=== PATIENT | male | born 1945 | race Caucasian/White ===

== ENCOUNTER 2021-11-19 13:35 | Inpatient (IN) | payer MEDICARE ==
[~2021-11-19] VITALS: Ht 177.8 cm; Wt 87.8 kg
[2021-11-19 14:05] LABS: Basophils # (auto) 0.1 10 ^3/uL (0-0.2); Basophils % (auto) 1.2 % (0.0-2.0); Eosinophils # (auto) 0.1 10 ^3/uL (0-0.8); Eosinophils % (auto) 1.5 % (0.0-7.0); Hematocrit 44.4 % (41.0-53.0); Hemoglobin 14.4 g/dL (13.5-17.5); Lymphocytes # (auto) 1.1 10 ^3/uL (0.4-5.4); Lymphocytes % (auto) 17.5 % (10.0-50.0); Mean Corpuscular Hemoglobin 31.7 pg (28.0-32.0); Mean Corpuscular Hgb Conc. 32.4 g/dL (32.0-36.0); Mean Corpuscular Volume 97.7 fL (80.0-100.0); Monocytes # (auto) 0.7 10 ^3/uL (0-1.3); Monocytes % (auto) 10.9 % (0.0-12.0); Neutrophils # (auto) 4.4 10 ^3/uL (1.6-8.6); Neutrophils % (auto) 68.9 % (37.0-80.0); Nucleated Red Blood Cells % 0.1 %; Red Blood Cells 4.55 10^6/uL (4.5-5.90); Red Cell Distribution Width 14.6 % (11.8-14.3); White Blood Cell 6.3 10^3/uL (4.4-10.8)
[2021-11-19 14:20] LABS: INR 1.23 (0.9-1.15); Partial Thromboplastin Time 25.6 sec (23.6-33.0)
[2021-11-19 14:26] LABS: Albumin 2.9 g/dL (3.4-5.0); Calcium 8.4 mg/dL (8.5-10.1); Magnesium 2.5 mg/dL (1.6-2.6); Potassium 4.4 mmol/L (3.5-5.1)
[2021-11-19 14:30] LABS: BUN/Creatinine Ratio 14.1; Bilirubin, Total 0.4 mg/dL (0.2-1.0); Total Protein 6.5 g/dL (6.4-8.2)
[2021-11-19] MEDS ORDERED: IOHEXOL 350 MG/ML 100ML IJ ONE (17:45)
[2021-11-19 18:54] LABS: Urine Bacteria NONE SEEN /hpf (None Seen); Urine Blood Negative /uL (Negative); Urine Specific Gravity 1.011 (1.001-1.035); Urine WBC 10 /hpf (0 - 3)
[2021-11-19] MEDS ORDERED: HEPARIN SODIUM (PORCINE) 5000 UNITS/ML 1ML VIAL IV ONE (20:00)
[2021-11-19 20:13] LABS: Basophils # (auto) 0.1 10 ^3/uL (0-0.2); Basophils % (auto) 2.3 % (0.0-2.0); Eosinophils # (auto) 0.1 10 ^3/uL (0-0.8); Eosinophils % (auto) 1.9 % (0.0-7.0); Hematocrit 44.8 % (41.0-53.0); Hemoglobin 14.5 g/dL (13.5-17.5); Lymphocytes # (auto) 1.2 10 ^3/uL (0.4-5.4); Lymphocytes % (auto) 22.1 % (10.0-50.0); Mean Corpuscular Hemoglobin 31.8 pg (28.0-32.0); Mean Corpuscular Hgb Conc. 32.3 g/dL (32.0-36.0); Mean Corpuscular Volume 98.4 fL (80.0-100.0); Monocytes # (auto) 0.8 10 ^3/uL (0-1.3); Monocytes % (auto) 14.4 % (0.0-12.0); Neutrophils # (auto) 3.3 10 ^3/uL (1.6-8.6); Neutrophils % (auto) 59.3 % (37.0-80.0); Red Blood Cells 4.55 10^6/uL (4.5-5.90); Red Cell Distribution Width 14.5 % (11.8-14.3); White Blood Cell 5.5 10^3/uL (4.4-10.8)
[2021-11-19] MEDS ORDERED: ALBUTEROL SULF 2.5 MG/0.5ML(0.5%) NEB SOLN NEB PRN (21:30)
[2021-11-19] MEDS ORDERED: TEMAZEPAM 15 MG CAP PO PRN (21:30)
[2021-11-19] MEDS ORDERED: HYDROcodone-ACET 5/325MG TAB PO PRN (21:30)
[2021-11-19] MEDS ORDERED: MORPHINE SULFATE INJ 2 MG/ml SYRG IV PRN (21:30)
[2021-11-19] MEDS ORDERED: ONDANSETRON HCL 4 MG/2 ML VIAL IV PRN (21:30)
[2021-11-19] MEDS ORDERED: ACETAMINOPHEN 325 MG TAB PO PRN (21:30)
[2021-11-19] MEDS ORDERED: NITROGLYCERIN 0.4 MG SL TAB SL PRN (21:30)
[2021-11-19 21:36] VITALS: BP 130/72
[2021-11-19] MEDS ORDERED: HEPARIN DRIP/D5W 100UNITS/ML 250 ML IV SCH (22:00)
[2021-11-19 22:58] LABS: INR 1.29 (0.9-1.15)
[2021-11-19 23:05] LABS: Partial Thromboplastin Time 88.8 sec (23.6-33.0)
[2021-11-19 23:17] VITALS: BP 158/101
[2021-11-19] MEDS ORDERED: SILD20TA12 PO (23:28)
[2021-11-20 05:00] VITALS: BP 147/84
[2021-11-20 05:30] LABS: Basophils # (auto) 0.1 10 ^3/uL (0-0.2); Basophils % (auto) 1.5 % (0.0-2.0); Eosinophils # (auto) 0.2 10 ^3/uL (0-0.8); Eosinophils % (auto) 3.4 % (0.0-7.0); Hematocrit 41.7 % (41.0-53.0); Hemoglobin 13.8 g/dL (13.5-17.5); Lymphocytes # (auto) 1.1 10 ^3/uL (0.4-5.4); Lymphocytes % (auto) 19.7 % (10.0-50.0); Mean Corpuscular Hemoglobin 32.9 pg (28.0-32.0); Mean Corpuscular Hgb Conc. 33.1 g/dL (32.0-36.0); Mean Corpuscular Volume 99.2 fL (80.0-100.0); Monocytes # (auto) 0.8 10 ^3/uL (0-1.3); Monocytes % (auto) 15.1 % (0.0-12.0); Neutrophils # (auto) 3.2 10 ^3/uL (1.6-8.6); Neutrophils % (auto) 60.3 % (37.0-80.0); Red Cell Distribution Width 14.6 % (11.8-14.3); White Blood Cell 5.4 10^3/uL (4.4-10.8)
[2021-11-20 05:41] LABS: INR 1.24 (0.9-1.15)
[2021-11-20 05:48] LABS: Albumin 2.5 g/dL (3.4-5.0); Calcium 8.2 mg/dL (8.5-10.1); Potassium 4.5 mmol/L (3.5-5.1)
[2021-11-20 05:52] LABS: BUN/Creatinine Ratio 14.2; Bilirubin, Total 0.7 mg/dL (0.2-1.0)
[2021-11-20] MEDS ORDERED: HEPARIN SODIUM (PORCINE) 5000 UNITS/ML 1ML VIAL IV ONE (06:15)
[2021-11-20] MEDS: HEPARIN DRIP/D5W 100UNITS/ML 250 ML IV SCH ×3 (06:19→19:55)
[2021-11-20 08:00] VITALS: BP 124/79
[2021-11-20] MEDS: PANTOPRAZOLE 40 MG TAB PO SCH (10:29)
[2021-11-20] MEDS: SILDENAFIL CITRATE 20 MG TAB PO SCH ×3 (10:31→20:24)
[2021-11-20] MEDS: FUROSEMIDE 20 MG TAB PO SCH (12:45)
[2021-11-20 13:00] VITALS: BP 137/66
[2021-11-20 13:09] LABS: INR 1.22 (0.9-1.15); Partial Thromboplastin Time 56.8 sec (23.6-33.0)
[2021-11-20 16:50] VITALS: BP 121/72
[2021-11-20 19:28] LABS: INR 1.26 (0.9-1.15); Partial Thromboplastin Time 43.3 sec (23.6-33.0)
[2021-11-20 21:58] VITALS: BP 119/67
[2021-11-20 23:38] LABS: INR 1.25 (0.9-1.15); Partial Thromboplastin Time 48.2 sec (23.6-33.0)
[2021-11-21 08:18] LABS: INR 1.23 (0.9-1.15)
[2021-11-21 08:25] LABS: Partial Thromboplastin Time 84.6 sec (23.6-33.0)
[2021-11-21] MEDS: SILDENAFIL CITRATE 20 MG TAB PO SCH ×2 (08:50→14:08)
[2021-11-21 09:00] VITALS: BP 123/62
[2021-11-21] MEDS: PANTOPRAZOLE 40 MG TAB PO SCH (09:36)
[2021-11-21] MEDS: FUROSEMIDE 20 MG TAB PO SCH (09:40)
[2021-11-21 11:51] LABS: INR 1.22 (0.9-1.15)
[2021-11-21 13:00] VITALS: BP 123/67
[2021-11-21 15:00] VITALS: BP 109/66
== END 2021-11-21 16:20 | disposition home or self-care (01) | DRG 176 ==
LOC: ER 13:35 → EDBD 13:35 → TELE 21:20 → TELE-WESTW 23:30
PROVIDERS: ADMIT Nurse Practitioner; ATTEND Internal Medicine Nephrology
DX: I26.99 Other pulmonary embolism without acute cor pulmonale (principal); I82.403 Acute embolism and thrombosis of unspecified deep veins of lower extremity, bilateral; I27.20 Pulmonary hypertension, unspecified; Z20.822 Contact with and (suspected) exposure to COVID-19; I10 Essential (primary) hypertension; J43.9 Emphysema, unspecified; R91.8 Other nonspecific abnormal finding of lung field; Z85.3 Personal history of malignant neoplasm of breast; Z79.810 Long term (current) use of selective estrogen receptor modulators (SERMs); Z87.891 Personal history of nicotine dependence; Z90.10 Acquired absence of unspecified breast and nipple; I27.82 Chronic pulmonary embolism
CPT/HCPCS: 36415; 71275; 80053; 81001; 83735; 83880; 84443; 84484; 85025; 85379; 85610; 85730; 93005; 93306; 93970; 96365; 96376; G0378

== ENCOUNTER 2021-12-10 18:08 | Inpatient (IN) | payer MEDICARE ==
[~2021-12-10] VITALS: Ht 177.8 cm; Wt 86.6 kg
[~2021-12-10 18:08] MED LIST: SILD20TA12 PO
[2021-12-10 20:02] LABS: Basophils # (auto) 0.1 10 ^3/uL (0-0.2); Basophils % (auto) 1.7 % (0.0-2.0); Eosinophils # (auto) 0.2 10 ^3/uL (0-0.8); Eosinophils % (auto) 3.7 % (0.0-7.0); Hemoglobin 13.2 g/dL (13.5-17.5); Lymphocytes % (auto) 20.1 % (10.0-50.0); Mean Corpuscular Hemoglobin 32.1 pg (28.0-32.0); Mean Corpuscular Hgb Conc. 32.9 g/dL (32.0-36.0); Mean Corpuscular Volume 97.6 fL (80.0-100.0); Monocytes # (auto) 0.6 10 ^3/uL (0-1.3); Monocytes % (auto) 11.4 % (0.0-12.0); Neutrophils # (auto) 3.2 10 ^3/uL (1.6-8.6); Neutrophils % (auto) 63.1 % (37.0-80.0); Red Cell Distribution Width 15.3 % (11.8-14.3)
[2021-12-10 20:16] LABS: Albumin 2.8 g/dL (3.4-5.0); Calcium 8.3 mg/dL (8.5-10.1); Potassium 4.4 mmol/L (3.5-5.1)
[2021-12-10 20:20] LABS: BUN/Creatinine Ratio 17.1; Bilirubin, Total 0.6 mg/dL (0.2-1.0); Total Protein 5.5 g/dL (6.4-8.2)
[2021-12-10] MEDS ORDERED: SODIUM CHLORIDE 0.9% 500 ML IV ONE (21:15)
[2021-12-10] MEDS ORDERED: SODIUM CHLORIDE 0.9% 1,000 ML IV ONE (23:15)
[2021-12-11] MEDS ORDERED: IOHEXOL 350 MG/ML 100ML IJ ONE (00:09)
[2021-12-11 00:28] LABS: Urine Bacteria NONE SEEN /hpf (None Seen); Urine Blood Negative /uL (Negative); Urine Hyaline Cast FEW /lpf (0 - 2); Urine Specific Gravity 1.014 (1.001-1.035); Urine WBC <1 /hpf (0 - 3)
[2021-12-11 00:32] LABS: Lactic Acid w/Reflex 2.8 mmol/L (0.4-2.0)
[2021-12-11 01:00] VITALS: BP 124/71
[2021-12-11] MEDS ORDERED: MORPHINE SULFATE INJ 2 MG/ml SYRG IV PRN (01:00)
[2021-12-11] MEDS ORDERED: NITROGLYCERIN 0.4 MG SL TAB SL PRN (01:00)
[2021-12-11] MEDS ORDERED: ALBUTEROL SULF 2.5 MG/0.5ML(0.5%) NEB SOLN NEB PRN (01:00)
[2021-12-11] MEDS ORDERED: ONDANSETRON HCL 4 MG/2 ML VIAL IV PRN (01:00)
[2021-12-11] MEDS ORDERED: IPRATROPIUM BROM 0.5 MG/2.5ML INH SOL NEB PRN (01:00)
[2021-12-11] MEDS ORDERED: TEMAZEPAM 15 MG CAP PO PRN (01:00)
[2021-12-11] MEDS ORDERED: ACETAMINOPHEN 325 MG TAB PO PRN (01:00)
[2021-12-11] MEDS: SILDENAFIL CITRATE 20 MG TAB PO SCH ×3 (08:35→22:44)
[2021-12-11] MEDS ORDERED: HCTZ 25 MG TAB PO SCH (10:00)
[2021-12-11] MEDS ORDERED: FUROSEMIDE 20 MG TAB PO SCH (10:00)
[2021-12-11] MEDS ORDERED: PANTOPRAZOLE 40 MG TAB PO SCH (10:00)
[2021-12-11] MEDS: APIXABAN 5 MG TAB PO SCH ×2 (10:00→21:39)
[2021-12-11 13:33] VITALS: BP 130/72
[2021-12-11] MEDS ORDERED: APIX5TAB PO (13:48)
[2021-12-11] MEDS ORDERED: UMEC1AER INH (13:48)
[2021-12-11] MEDS ORDERED: FURO1TAB33 PO (13:48)
[2021-12-11] MEDS ORDERED: TAMO20TA9 PO (13:48)
[2021-12-11] MEDS ORDERED: METOPROLOL TARTRATE 25 MG TAB PO ONE (15:00)
[2021-12-11 16:36] VITALS: BP 141/89
[2021-12-11] MEDS: FUROSEMIDE 20 MG/2 ML VIAL IV SCH (18:00)
[2021-12-11] MEDS: METOPROLOL TARTRATE 25 MG TAB PO SCH (21:46)
[2021-12-11 22:00] VITALS: BP 103/60
[2021-12-12 05:00] VITALS: BP 128/69
[2021-12-12] MEDS: FUROSEMIDE 20 MG/2 ML VIAL IV SCH (05:34)
[2021-12-12 07:08] LABS: Basophils # (auto) 0.1 10 ^3/uL (0-0.2); Basophils % (auto) 2.5 % (0.0-2.0); Eosinophils # (auto) 0.5 10 ^3/uL (0-0.8); Eosinophils % (auto) 7.7 % (0.0-7.0); Hematocrit 42.7 % (41.0-53.0); Hemoglobin 14.1 g/dL (13.5-17.5); Lymphocytes # (auto) 0.6 10 ^3/uL (0.4-5.4); Lymphocytes % (auto) 10.6 % (10.0-50.0); Mean Corpuscular Hemoglobin 32.8 pg (28.0-32.0); Mean Corpuscular Hgb Conc. 33.1 g/dL (32.0-36.0); Monocytes # (auto) 0.8 10 ^3/uL (0-1.3); Monocytes % (auto) 12.8 % (0.0-12.0); Neutrophils % (auto) 66.4 % (37.0-80.0); Nucleated Red Blood Cells % 0.1 %; Red Blood Cells 4.31 10^6/uL (4.5-5.90); Red Cell Distribution Width 15.2 % (11.8-14.3)
[2021-12-12 07:18] LABS: BUN/Creatinine Ratio 14.9; Calcium 8.7 mg/dL (8.5-10.1); Potassium 4.8 mmol/L (3.5-5.1)
[2021-12-12 07:21] LABS: Bilirubin, Total 0.8 mg/dL (0.2-1.0); Total Protein 5.7 g/dL (6.4-8.2)
[2021-12-12] MEDS: SILDENAFIL CITRATE 20 MG TAB PO SCH (08:24)
[2021-12-12 09:00] VITALS: BP 93/55
[2021-12-12] MEDS: METOPROLOL TARTRATE 25 MG TAB PO SCH (10:00)
[2021-12-12] MEDS: APIXABAN 5 MG TAB PO SCH (11:01)
[2021-12-12] MEDS ORDERED: METO25TA36 PO (12:15)
[2021-12-12 13:00] VITALS: BP 99/57
[2021-12-12 14:25] VITALS: BP 93/55
== END 2021-12-12 15:05 | disposition home or self-care (01) | DRG 189 ==
LOC: EDSEX 18:08 → EDBD 18:08 → ER 18:08 → TELE 12-11 00:54 → TELE-WESTW 12-11 13:04
PROVIDERS: ADMIT Nurse Practitioner; ATTEND Internal Medicine Nephrology
DX: J96.21 Acute and chronic respiratory failure with hypoxia (principal); I50.31 Acute diastolic (congestive) heart failure; I47.1 Supraventricular tachycardia; I13.0 Hypertensive heart and chronic kidney disease with heart failure and stage 1 through stage 4 chronic kidney disease, or unspecified chronic kidney disease; I82.403 Acute embolism and thrombosis of unspecified deep veins of lower extremity, bilateral; I31.3 Pericardial effusion (noninflammatory); J44.1 Chronic obstructive pulmonary disease with (acute) exacerbation; C34.12 Malignant neoplasm of upper lobe, left bronchus or lung; I27.82 Chronic pulmonary embolism; I27.21 Secondary pulmonary arterial hypertension; N18.30 Chronic kidney disease, stage 3 unspecified; I08.3 Combined rheumatic disorders of mitral, aortic and tricuspid valves; I95.9 Hypotension, unspecified; Z20.822 Contact with and (suspected) exposure to COVID-19; E78.5 Hyperlipidemia, unspecified; Z85.3 Personal history of malignant neoplasm of breast; Z68.27 Body mass index [BMI] 27.0-27.9, adult; Z86.718 Personal history of other venous thrombosis and embolism; Z90.11 Acquired absence of right breast and nipple
CPT/HCPCS: 36415; 36600; 71045; 71275; 80053; 81001; 82805; 83605; 83880; 84484; 85025; 86141; 87040; 87081; 93005; 96360; 96361; G0378

== ENCOUNTER 2021-12-30 15:43 | Inpatient (IN) | payer MEDICARE ==
[~2021-12-30] VITALS: Ht 177.8 cm; Wt 82.0 kg
[~2021-12-30 15:43] MED LIST changes: +APIX5TAB PO; +FURO1TAB33 PO; +METO25TA36 PO; +TAMO20TA9 PO; +UMEC1AER INH
[2021-12-30] MEDS ORDERED: SODIUM CHLORIDE 0.9% 1,000 ML IVB ONE (16:30)
[2021-12-30 17:06] LABS: Basophils # (auto) 0.1 10 ^3/uL (0-0.2); Basophils % (auto) 1.3 % (0.0-2.0); Eosinophils # (auto) 0.1 10 ^3/uL (0-0.8); Eosinophils % (auto) 1.4 % (0.0-7.0); Hematocrit 41.7 % (41.0-53.0); Hemoglobin 13.5 g/dL (13.5-17.5); Lymphocytes # (auto) 1.1 10 ^3/uL (0.4-5.4); Mean Corpuscular Hemoglobin 31.6 pg (28.0-32.0); Mean Corpuscular Hgb Conc. 32.3 g/dL (32.0-36.0); Monocytes # (auto) 0.6 10 ^3/uL (0-1.3); Monocytes % (auto) 11.4 % (0.0-12.0); Neutrophils # (auto) 3.7 10 ^3/uL (1.6-8.6); Neutrophils % (auto) 66.9 % (37.0-80.0); Red Blood Cells 4.26 10^6/uL (4.5-5.90); Red Cell Distribution Width 14.8 % (11.8-14.3); White Blood Cell 5.6 10^3/uL (4.4-10.8)
[2021-12-30 17:26] LABS: BUN/Creatinine Ratio 9.2; Calcium 8.2 mg/dL (8.5-10.1); Potassium 4.4 mmol/L (3.5-5.1)
[2021-12-30 17:30] LABS: Bilirubin, Total 0.6 mg/dL (0.2-1.0); Total Protein 5.6 g/dL (6.4-8.2)
[2021-12-30] MEDS ORDERED: ETOMIDATE (2MG/ML) 20ML VIAL IV ONE (19:00)
[2021-12-30] MEDS ORDERED: SODIUM CHLORIDE 0.9% 1,000 ML IV ONE (20:15)
[2021-12-30] MEDS ORDERED: MORPHINE SULFATE INJ 2 MG/ml SYRG IV PRN (21:15)
[2021-12-30] MEDS ORDERED: NITROGLYCERIN 0.4 MG SL TAB SL PRN (21:15)
[2021-12-30] MEDS ORDERED: ACETAMINOPHEN 325 MG TAB PO PRN (21:15)
[2021-12-30] MEDS ORDERED: TEMAZEPAM 15 MG CAP PO PRN (21:15)
[2021-12-30] MEDS ORDERED: ONDANSETRON HCL 4 MG/2 ML VIAL IV PRN (21:15)
[2021-12-30] MEDS ORDERED: AMIODARONE 450mg/250ml AE 250 ML IV SCH (21:15)
[2021-12-30] MEDS ORDERED: ALBUMIN 5% 250 ML IV ONE (21:15)
[2021-12-30] MEDS ORDERED: AMIODARONE HCL 150 MG in D5W 5% 100 ML IV ONE (21:15)
[2021-12-30] MEDS ORDERED: HYDROcodone-ACET 5/325MG TAB PO PRN (21:15)
[2021-12-30] MEDS ORDERED: AMIODARONE HCL (50 MG/ ML) 3 ML VIAL IV ONE (21:27)
[2021-12-30] MEDS: APIXABAN 5 MG TAB PO SCH (22:13)
[2021-12-30 22:37] LABS: Urine Bacteria NONE SEEN /hpf (None Seen); Urine Blood Negative /uL (Negative); Urine Mucus FEW (None Seen); Urine Specific Gravity 1.006 (1.001-1.035); Urine WBC <1 /hpf (0 - 3)
[2021-12-31 06:03] LABS: Basophils # (auto) 0.1 10 ^3/uL (0-0.2); Basophils % (auto) 2.2 % (0.0-2.0); Eosinophils # (auto) 0.2 10 ^3/uL (0-0.8); Eosinophils % (auto) 4.7 % (0.0-7.0); Hematocrit 42.3 % (41.0-53.0); Hemoglobin 13.7 g/dL (13.5-17.5); Lymphocytes % (auto) 21.3 % (10.0-50.0); Mean Corpuscular Hemoglobin 32.1 pg (28.0-32.0); Mean Corpuscular Hgb Conc. 32.4 g/dL (32.0-36.0); Mean Corpuscular Volume 99.3 fL (80.0-100.0); Monocytes # (auto) 0.6 10 ^3/uL (0-1.3); Monocytes % (auto) 12.9 % (0.0-12.0); Neutrophils # (auto) 2.8 10 ^3/uL (1.6-8.6); Neutrophils % (auto) 58.9 % (37.0-80.0); Red Blood Cells 4.26 10^6/uL (4.5-5.90); Red Cell Distribution Width 15.2 % (11.8-14.3); White Blood Cell 4.8 10^3/uL (4.4-10.8)
[2021-12-31 06:15] LABS: Albumin 3.3 g/dL (3.4-5.0); Calcium 8.6 mg/dL (8.5-10.1); Potassium 4.2 mmol/L (3.5-5.1)
[2021-12-31 06:18] LABS: BUN/Creatinine Ratio 6.8; Bilirubin, Total 0.9 mg/dL (0.2-1.0); Total Protein 5.8 g/dL (6.4-8.2)
[2021-12-31] MEDS: AMIODARONE 450mg/250ml AE 250 ML IV SCH ×2 (06:22→18:15)
[2021-12-31] MEDS ORDERED: PANTOPRAZOLE 40 MG TAB PO SCH (10:00)
[2021-12-31] MEDS: ASPirin 81 mg TAB PO SCH (10:58)
[2021-12-31] MEDS: APIXABAN 5 MG TAB PO SCH ×2 (10:58→22:24)
[2021-12-31] MEDS: FUROSEMIDE 20 MG TAB PO SCH (10:59)
[2021-12-31 22:00] VITALS: BP 131/74
[2021-12-31] MEDS ORDERED: METOPROLOL TARTRATE 25 MG TAB PO SCH (22:00)
[2022-01-01 05:00] VITALS: BP 118/72
[2022-01-01 06:31] LABS: Basophils # (auto) 0.1 10 ^3/uL (0-0.2); Basophils % (auto) 1.2 % (0.0-2.0); Eosinophils # (auto) 0.4 10 ^3/uL (0-0.8); Eosinophils % (auto) 5.7 % (0.0-7.0); Hematocrit 42.6 % (41.0-53.0); Hemoglobin 14.2 g/dL (13.5-17.5); Lymphocytes # (auto) 0.8 10 ^3/uL (0.4-5.4); Lymphocytes % (auto) 12.5 % (10.0-50.0); Mean Corpuscular Hgb Conc. 33.4 g/dL (32.0-36.0); Mean Corpuscular Volume 98.8 fL (80.0-100.0); Monocytes # (auto) 0.9 10 ^3/uL (0-1.3); Monocytes % (auto) 13.8 % (0.0-12.0); Neutrophils # (auto) 4.2 10 ^3/uL (1.6-8.6); Neutrophils % (auto) 66.8 % (37.0-80.0); Nucleated Red Blood Cells % 0.1 %; Red Blood Cells 4.31 10^6/uL (4.5-5.90); White Blood Cell 6.3 10^3/uL (4.4-10.8)
[2022-01-01 06:47] LABS: BUN/Creatinine Ratio 11.1; Magnesium 2.5 mg/dL (1.6-2.6); Potassium 4.3 mmol/L (3.5-5.1)
[2022-01-01 09:00] VITALS: BP 121/72
[2022-01-01] MEDS: FUROSEMIDE 20 MG TAB PO SCH (09:18)
[2022-01-01] MEDS: ASPirin 81 mg TAB PO SCH (09:19)
[2022-01-01] MEDS: APIXABAN 5 MG TAB PO SCH (09:19)
[2022-01-01 13:00] VITALS: BP 129/78
[2022-01-01 13:54] VITALS: BP 129/78
== END 2022-01-01 16:15 | disposition home or self-care (01) | DRG 308 ==
LOC: ER 15:43 → EDBD 15:43 → TELE 21:11 → TELE-WESTW 12-31 14:17
PROVIDERS: ADMIT Nurse Practitioner; ATTEND Internal Medicine Nephrology
PROC: 5A2204Z Restoration of Cardiac Rhythm, Single (ICD-10-PCS; principal; 2021-12-30)
DX: I47.1 Supraventricular tachycardia (principal); I50.31 Acute diastolic (congestive) heart failure; J96.01 Acute respiratory failure with hypoxia; I27.82 Chronic pulmonary embolism; I82.403 Acute embolism and thrombosis of unspecified deep veins of lower extremity, bilateral; I24.8 Other forms of acute ischemic heart disease; C34.12 Malignant neoplasm of upper lobe, left bronchus or lung; I27.20 Pulmonary hypertension, unspecified; I95.9 Hypotension, unspecified; E78.5 Hyperlipidemia, unspecified; I11.0 Hypertensive heart disease with heart failure; I48.91 Unspecified atrial fibrillation; Z20.822 Contact with and (suspected) exposure to COVID-19; J43.9 Emphysema, unspecified; Z79.899 Other long term (current) drug therapy; Z79.01 Long term (current) use of anticoagulants; Z85.3 Personal history of malignant neoplasm of breast; Z87.891 Personal history of nicotine dependence; Z90.11 Acquired absence of right breast and nipple; Z91.19 Patient's noncompliance with other medical treatment and regimen
CPT/HCPCS: 36415; 71045; 80048; 80053; 81001; 83735; 83880; 84484; 85025; 85379; 92960; 93005; 93306; 96361; 96365; 96366; 96368; 99291; G0378; J7060